=== PATIENT | female | born 1995 ===

== ENCOUNTER 2019-06-23 12:37 | Outpatient (REF) | payer BC, SELFPAY ==
--- NOTE | 2019-06-23 11:44 | PAPFT_PTH ---
PATIENT: Nita Jimenez [id number] AGE/SX: 23/ ROOM: RE06/23/[address]: Sendy Nelson : 1995 BED: DIS: 06/23/2019 SPEC #: [id number] RECD: 06/25/19 13:03 STATUS: DUSTIN REGabi #: [id number] DENISE: 06/23/19 11:[address]: Sendy Nelson DEPT: [facility] Cytology RECD BY: Jada Cristina Tissues: 1 - CX/ENDOCX FOR PAP SMEARS Procedures: PAP THIN PREP/[facility] Screening Comments: [id number] (CHLAMYDIA/GC)
[2019-06-26 12:51] LABS: Chlamydia Result Negative (Negative); GC Result Negative (Negative)
== END 2019-06-23 12:57 ==
LOC: NCHCN 12:37
PROVIDERS: PCP Nurse Practitioner Family; Visit Provider Nurse Practitioner Family
DX: Z00.00 Encounter for general adult medical examination without abnormal findings (principal); Z12.4 Encounter for screening for malignant neoplasm of cervix; Z01.419 Encounter for gynecological examination (general) (routine) without abnormal findings; Z11.3 Encounter for screening for infections with a predominantly sexual mode of transmission
CPT/HCPCS: 87491; 87591; 88142

== ENCOUNTER 2020-06-27 12:26 | Outpatient (REF) | payer BC, SELFPAY ==
[2020-06-28 19:39] LABS: COVID-19 RT-PCR UVMMC Result Negative (Negative)
== END 2020-06-27 12:46 ==
LOC: NCHCN 12:26
PROVIDERS: PCP Nurse Practitioner Family; Visit Provider Nurse Practitioner Family
DX: Z20.828 Contact with and (suspected) exposure to other viral communicable diseases (principal)
CPT/HCPCS: U0003

== ENCOUNTER 2020-07-05 15:01 | Outpatient (REF) | payer OTHER, SELFPAY ==
[2020-07-06 16:32] LABS: COVID-19 RT-PCR UVMMC Result Negative (Negative)
== END 2020-07-05 15:21 ==
LOC: NCHCN 15:01
PROVIDERS: PCP Nurse Practitioner Family; Visit Provider Nurse Practitioner Family
DX: Z20.822 Contact with and (suspected) exposure to COVID-19 (principal)
CPT/HCPCS: U0003

== ENCOUNTER 2020-11-18 19:34 | Outpatient (REF) | payer OTHER, SELFPAY ==
[2020-11-18 20:55] LABS: Abs Immature Grans 0.02 10^3/uL (0.0-0.06); Absolute Basophil Count 0.04 10^3/uL (0.0-0.2); Absolute Lymphocyte Count 1.61 10^3/uL (1.2-3.4); Absolute Monocyte Count 0.46 10^3/uL (0.1-0.8); Absolute Neutrophil Count 4.46 10^3/uL (1.2-6.7); Basophils % 0.6; Eosinophils % 2.9; HCT 40.2 % (36.0-46.0); HGB 12.9 g/dL (11.2-15.7); Immature Grans % 0.3; Lymphocytes % 23.7; MCH 28.3 pg (27.0-33.0); MCHC 32.1 % (32.0-36.0); MCV 88.2 fL (80-95); MPV 9.8 fL (8.0-11.0); Monocytes % 6.8; Neutrophils % 65.7; Nucleated RBC 0 %; Platelet Count 377 10^3/uL (130-400); RBC 4.56 10^6/uL (3.93-5.22); RDW 12.8 % (11.7-14.6); RDW-SD 41.7 fL; WBC 6.79 10^3/uL (4.4-10.8)
[2020-11-18 21:33] LABS: ALT 29 U/L (14-59); AST 20 U/L (15-37); Albumin 3.8 g/dL (3.4-5.0); Alkaline Phosphatase 69 U/L (46-116); Anion Gap 7.8 mmol/L (3-11); BUN 17 mg/dL (7-18); Bilirubin, Total 0.2 mg/dL (0.2-1.0); CO2 28.2 mmol/L (21.0-32.0); CREATININE 0.9 mg/dL (0.55-1.02); Calcium 9.1 mg/dL (8.5-10.1); Chloride 107 mmol/L (98-107); Glucose 86 mg/dL (74-106); Potassium 4.2 mmol/L (3.5-5.1); Sodium 143 mmol/L (136-145); TSH (W/Ref FT4) 1.05 uIU/mL (0.36-3.74); Total Protein 6.9 g/dL (6.4-8.2)
== END 2020-11-18 19:35 | disposition home or self-care (01) ==
LOC: NCHCN 19:34
PROVIDERS: PCP Nurse Practitioner Family; Visit Provider Family Medicine
DX: F41.8 Other specified anxiety disorders (principal)
CPT/HCPCS: 80053; 84443; 85025

== ENCOUNTER 2021-04-12 14:54 | Outpatient (REF) | payer OTHER, SELFPAY ==
[2021-04-12 22:01] LABS: Abs Immature Grans 0.04 10^3/uL (0.0-0.06); Absolute Basophil Count 0.05 10^3/uL (0.0-0.2); Absolute Lymphocyte Count 0.75 10^3/uL (1.2-3.4); Absolute Monocyte Count 0.75 10^3/uL (0.1-0.8); Absolute Neutrophil Count 8.03 10^3/uL (1.2-6.7); Basophils % 0.5; HCT 43.7 % (36.0-46.0); HGB 13.8 g/dL (11.2-15.7); Immature Grans % 0.4; Lymphocytes % 7.6; MCH 27.3 pg (27.0-33.0); MCHC 31.6 % (32.0-36.0); MCV 86.4 fL (80-95); MPV 10.2 fL (8.0-11.0); Monocytes % 7.6; Neutrophils % 81.9; Nucleated RBC 0 %; Platelet Count 358 10^3/uL (130-400); RBC 5.06 10^6/uL (3.93-5.22); RDW-SD 47.8 fL; WBC 9.82 10^3/uL (4.4-10.8)
[2021-04-12 22:09] LABS: Anion Gap 5.8 mmol/L (3-11); BUN 14 mg/dL (7-18); CO2 32.2 mmol/L (21.0-32.0); CREATININE 0.8 mg/dL (0.55-1.02); Calcium 9.2 mg/dL (8.5-10.1); Chloride 105 mmol/L (98-107); Glucose 84 mg/dL (74-106); Potassium 4.1 mmol/L (3.5-5.1); Sodium 143 mmol/L (136-145)
== END 2021-04-12 14:55 | disposition home or self-care (01) ==
LOC: LBN 14:54
PROVIDERS: PCP Nurse Practitioner Family; Visit Provider Physician Assistant Medical
DX: R55 Syncope and collapse (principal)
CPT/HCPCS: 80048; 85025

== ENCOUNTER 2022-08-23 12:32 | Outpatient (REF) | payer BC, SELFPAY ==
--- NOTE | 2022-08-23 11:30 | PAPFT_PTH ---
PATIENT: Nita Jimenez LOC: [facility]#:[id number] AGE/SX: 27/F ROOM: RE08/23/[address]: Sendy Nelson : 1995 BED: DIS: 08/23/2022 SPEC #: [id number] RECD: 08/23/22 17:59 STATUS: DUSTIN REGabi #: [id number] DENISE: 08/23/22 11:[address]: Sendy Nelson DEPT: [facility] Cytology RECD BY: Jada Cristina Tissues: 1 - CX/ENDOCX FOR PAP SMEARS Procedures: PAP THIN PREP/[facility] Screening Comments: [id number] (CHLAMYDIA/GC)
[2022-08-24 14:26] LABS: Chlamydia Result Negative (Negative); GC Result Negative (Negative)
== END 2022-08-23 12:33 | disposition home or self-care (01) ==
LOC: NCHCN 12:32
PROVIDERS: PCP Nurse Practitioner Family; Visit Provider Nurse Practitioner Family
DX: Z00.00 Encounter for general adult medical examination without abnormal findings (principal); Z12.4 Encounter for screening for malignant neoplasm of cervix; Z11.3 Encounter for screening for infections with a predominantly sexual mode of transmission
CPT/HCPCS: 87491; 87591; 88142

== ENCOUNTER 2024-02-20 15:56 | Outpatient (CLI) | payer BC, SELFPAY ==
--- OUTSIDE RECORDS SUMMARY | 2024-02-20 15:59 | XMS_ITS | Continuity of Care Document ---
Author [facility] Address [address] [place] [address] Care Team Providers Care Refrigeration Brazer/Solderer Name Role Phone FILIPE CAMPUZANO Primary Care Physician [phone] Encounter LTTL_[place] FIN NBR [id number] Date(s): 09/12/23 - 09/12/[address] [phone] Discharge Disposition: Home or Self Care Attending Physician: FILIPE CAMPUZANO Admitting Physician: FILIPE CAMPUZANO Referring Physician: FILIPE CAMPUZANO Allergies, Adverse Reactions, Alerts Substance Reaction Severity Status penicillin Moderate Active Bees/Stinging Insects Severe Active Immunizations Given and Recorded Vaccine Date Status Refusal Reason influenza virus vaccine, inactivated 03/26/22 Give n influenza virus vaccine, inactivated 1 05/06/20 Re corded tetanus/diphth/pertuss (Tdap) adult/adol 2 01/09/22 Recorded SARS-CoV-2 (COVID-19) mRNA-1273 vaccine 3 11/02/20 Recorded SARS-CoV-2 (COVID-19) mRNA-1273 vaccine 4 10/05/20 Recorded 1Result Comment: Unit: Unknown V Belt Skiver: Sanofi Pasteur 2Result Comment: V Belt Skiver: Sanofi Pasteur 3Result Comment: Unit: Unknown 4Result Comment: Unit: Unknown Medications busPIRone 10 mg oral tablet 270 EA, TAKE 1 TABLET BY MOUTH THREE TIMES DAILY NEEDED, 0 Refill(s) Start Date: 04/10/22 Status: Ordered norethindrone 0.35 mg oral tablet 0.35 mg = 1 tab, Oral, Daily, # 84 tab, 3 Refill(s) Start Date: 05/01/22 Status: Ordered Complete with DHA 1 Unknown, 0 Refill(s) Start Date: 04/10/22 Status: Ordered Slynd 4 mg oral tablet 4 mg = 1 tab, Oral, Daily, stop norethindrone. If this helps, may refill 90 at a time., # 28 tab, 11 Refill(s), Pharmacy: [id number], 177.8, cm, 04/10/22 10:36:00 EDT, Height/Length Dosing, 84.2, kg, 04/10/22 10:36:00 EDT, Weight Dosing Start Date: 06/07/22 Status: Ordered tranexamic acid 650 mg oral tablet 1,300 mg = 2 tab, Oral, TID, # 30 tab, 0 Refill(s), Pharmacy: [facility] #[id number], 177.8, cm, 04/10/22 10:36:00 EDT, Height/Length Dosing, 84.2, kg, 04/10/22 10:36:00 EDT, Weight Dosing Start Date: 08/10/22 Status: Ordered Problem List Condition Confirmation Course Effective Dates Status Health St atus Informant 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 Umbilical hernia Confirmed Active Procedures Procedure Date Related Diagnosis Body Site Status Structure of wisdom tooth Completed Results Radiology Reports * Exam Date Time Procedure Performing Provider Status 09/12/23 10:05 AM MG Mammo Diagnostic Bilateral Marly Lugo; Modified Notes: (MG Mammo Diagnostic Bilateral) Reason For Exam: LUMP IN LT BREAST PAIN IN RT, LUMPS IN L MG Mammo Diagnostic Bilateral EXAM DESCRIPTION: MG Mammo Diagnostic Bilateral 09/12/2023 INDICATION: LUMP IN LT BREAST PAIN IN RT, LUMPS IN L COMPARISON: Same date diagnostic left breast ultrasound BREAST DENSITY: There are scattered areas of fibroglandular density. FINDINGS: MLO and CC views were performed with digital breast tomosynthesis. Images were reviewed using computer aided detection. No asymmetry, architectural distortion or suspicious grouping of calcifications to suggest malignancy in either breast. Left breast ultrasound targeted to areas of palpable concern demonstrated no abnormality. Results were discussed with the patient at the time of examination. ASSESSMENT: No mammographic evidence of malignancy. Negative. BI-RADS category 1. RECOMMENDATION: 1: Screening mammography at age 40 JOB #: [id number] Final Signed by: Cody Pacheco MD Signed (Electronic Signature): 09/12/2023 10:08 am * Exam Date Time Procedure Performing Provider Status 09/12/23 9:36 AM US Breast Limited Left DomainUser, Gen erated; Auth (Verified) Notes: (US Breast Limited Left) Reason For Exam: LUMP IN LT BREAST PAIN IN RT US Breast Limited Left EXAM DESCRIPTION: US Breast Limited Left 09/12/2023 INDICATION: US Breast Limited Left TECHNIQUE: Limited grayscale ultrasound examination of the left breast was performed targeted to the areas of palpable concern. Static and cine clip images were obtained. COMPARISON: None FINDINGS: Scanning of the left breast in the 6 o'clock position 7-8 cm from the nipple and 3 o'clock position 4 cm from the nipple in the areas of palpable concern demonstrated normal glandular tissue with no suspicious solid or cystic lesion in either location. Results were discussed with the patient at the time of examination. ASSESSMENT: No evidence of malignancy. Negative. BI-RADS category 1. RECOMMENDATION: Screening mammography at age 40 JOB #: [id number] Final Signed by: Cody Pacheco MD Signed (Electronic Signature): 09/12/2023 10:06 am Social History Social History Type Response Tobacco Never tobacco user T obacco Use:. Sex Female Patient Care team information Care Team Personnel Name: Alok Toussaint MD, FACOG Position: Physician - Women's Health Member Role: TELEPHONE INTERVIEWER Physician Address: Address: [address] [place] [address] Name: Pretty Slade APRN Position: Physician Member Role: Nurse Practitioner Address: Address: [address] [facility] [address] [place] [id number] Name: FILIPE CAMPUZANO Position: No Access Member Role: Primary Care Physician Address: Address: [facility] [address] [place], [place] [address] Care Team Related Persons Name: KAYLIN CARMONA Address: Home [address], [place] [id number] [facility] Name: MONIQUE CARMONA Address: Home [address], [place] [id number] [place]
--- OUTSIDE RECORDS SUMMARY | 2024-02-20 15:59 | XMS_ITS | Encounter Summary ---
Author Organization [facility] Address [address] [place] [address] Care Team Providers Care Pension Adviser Name Role Phone Unavailable Primary Care Provider Unavailabl e Encounter Details Date Type Department Care Team (Late st Contact Info) Description 07/05/2020 Lab Requisition [facility] Pathology & Laboratory Medicine - [address] [address] Outr Resulting Lab, Provider Social History Tobacco Use Types Packs/Day Years Used Date Smoking Tobacco: Never Assessed Interpersonal Safety Answer Date Record ed Physically Hurt Never 05/17/2020 Verbally Threaten Not on file 05/17/2020 Sex and Gender Information Value Date Recorded Sex Assigned at Not on file Gender Identity Not on file Sexual Orientation Not on file documented as of this encounter Plan of Treatment Not on file documented as of this encounter Procedures Procedure Name Priority Date/Time Associated Diagnosis Comments ZZCOVID-19 TEST [facility] PCR Today 07/05/2020 10:30 EST COVID-19 TESTING Routine 07/05/2020 10:3 0 EST documented in this encounter Results * COVID-19 TEST [facility] PCR (07/05/2020 10:30 EST) Swab ENTIRE NASOPHARYNX / Unknown 07/05/2020 10:30 EST 07/05/2020 15:37 EST Provider Outr Resulting Lab MICROBIOLOGY - GENERAL ORDERABLES [facility] [address] [place] [address] * COVID-19 TESTING (07/05/2020 10:30 EST) COVID-19 rt-PCR Result Negative Negative 07/06/2020 16:22 EST [facility] Comment: Negative results do not preclude 2019-nCoV infection and should not be used as the sole basis for treatment or other patient management decisions. Negative results must be combined with clinical observations, patient history, and epidemiological information. This test was developed and its performance characteristics determined by [facility]. It has not been cleared or approved by the US Food and Drug Administration. FDA does not require this test to go through premarket FDA review. This test is used for clinical purposes. It should not be regarded as investigational or for research. This laboratory is certified under the Clinical Laboratory Improvement Amendments (CLIA) as qualified to perform high complexity clinical laboratory testing. This test is based on the CDC COVID-19 Emergency Use Authorization (EUA) assay, with minor modification as defined by the FDA Performed on the CallmyName 7 Flex. Performing Lab [facility] Lab 07/06/2020 16:22 EST [facility] Swab 07/05/2020 10:3 0 EST 07/05/2020 15:37 EST Provider Outr Resulting Lab MICROBIOLOGY - GENERAL ORDERABLES [facility] [address] [place] [address] documented in this encounter Visit Diagnoses Not on filedocumented in this encounter
--- OUTSIDE RECORDS SUMMARY | 2024-02-20 15:59 | XMS_ITS | Referral Summary ---
Author Organization [facility] Address [address] [place] [address] Care Team Providers Care Cake Former Name Role Phone Unavailable Primary Care Provider Unavailabl e Social History Tobacco Use Types Packs/Day Years Used Date Smoking Tobacco: Never Assessed Interpersonal Safety Answer Date Record ed Physically Hurt Never 05/17/2020 Verbally Threaten Not on file 05/17/2020 Sex and Gender Information Value Date Recorded Sex Assigned at Not on file Gender Identity Not on file Sexual Orientation Not on file Plan of Treatment Not on file
--- OUTSIDE RECORDS SUMMARY | 2024-02-20 15:59 | XMS_ITS | Continuity of Care Document ---
Author Organization [facility] Address [address] [place] [address] Care Team Providers Care Plant And Instrument Engineer Name Role Phone FILIPE CAMPUZANO Primary Care Physician [phone] Encounter LTTL_[place] FIN NBR [id number] Date(s): 11/20/22 - 11/20/[address] [address] Encounter Diagnosis Excessive and frequent menstruation with irregular cycle(Final) - Other specified abnormal uterine and vaginal bleeding(Final) - Discharge Disposition: Home or Self Care Attending Physician: Alok Toussaint MD, FACOG Admitting Physician: Alok Toussaint MD, FACOG Referring Physician: Alok Toussaint MD, FACOG Allergies, Adverse Reactions, Alerts Substance Reaction Severity Status penicillin Moderate Active Bees/Stinging Insects Severe Active Assessment and Plan Future Appointments Immunizations Given and Recorded Vaccine Date Status Refusal Reason influenza virus vaccine, inactivated 03/26/22 Give n influenza virus vaccine, inactivated 1 05/06/20 Re corded tetanus/diphth/pertuss (Tdap) adult/adol 2 01/09/22 Recorded SARS-CoV-2 (COVID-19) mRNA-1273 vaccine 3 11/02/20 Recorded SARS-CoV-2 (COVID-19) mRNA-1273 vaccine 4 10/05/20 Recorded 1Result Comment: Unit: Unknown Director Report: Sanofi Pasteur 2Result Comment: Director Report: Sanofi Pasteur 3Result Comment: Unit: Unknown 4Result [...] time., # 28 tab, 11 Refill(s), Pharmacy: [id number], 177.8, cm, 04/10/22 10:36:00 EDT, Height/Length Dosing, 84.2, kg, 04/10/22 10:36:00 EDT, Weight Dosing Start Date: 06/07/22 Status: Ordered tranexamic acid 650 mg oral tablet 1,300 mg = 2 tab, Oral, TID, # 30 tab, 0 Refill(s), 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 Umbilical hernia Confirmed Active Procedures Procedure Date Related Diagnosis Body Site Status Structure of wisdom tooth Completed Results Laboratory List Name Date CBC w/ Diff 11/20/22 Automated Diff 11/20/22 Most recent to oldest [Reference Range]: 1 WBC [4.8-10.8 K/mcL] 6.0 K/mcL (11/20/22 2:53 PM) RBC [4.20-5.40 Million/mcL] 4.66 Million /mcL (11/20/22 2:53 PM) Neutro Auto [42.2-75.2 %] 61.6 % (11/20/22 2:53 PM) Lymph Auto [20.5-51.1 %] 28.4 % (11/20/22 2:53 PM) [place] Auto [1.7-9.3 %] 7.3 % (11/20/22 2:53 PM) Basophil Auto [0.0-0.8 %] 0.7 % (11/20/22 2:53 PM) Baso Absolute [0.0-0.2 K/mcL] 0.0 K/mcL (11/20/22 2:53 PM) MCV [81.0-99.0 fL] 88.0 fL (11/20/22 2:53 PM) MCHC [32.0-36.0 g/dL] 32.0 g/dL (11/20/22 2:53 PM) Lymph Absolute [1.2-3.4 K/mcL] 1.7 K/mcL (11/20/22 2:53 PM) Hct [37.0-47.0 %] 41.0 % (11/20/22 2:53 PM) [place] Absolute [0.1-0.6 K/mcL] 0.4 K/mcL (11/20/22 2:53 PM) MCH [27.0-31.0 pg] 28.1 pg (11/20/22 2:53 PM) Neutro Absolute [1.4-6.5 K/mcL] 3.7 K/mc L (11/20/22 2:53 PM) Hgb [12.0-16.0 g/dL] 13.1 g/dL (11/20/22 2:53 PM) MPV [7.4-10.4 fL] 9.6 fL (11/20/22 2:53 PM) Platelets [130-400 K/mcL] 331 K/mcL (11/20/22 2:53 PM) Eos Absolute [0.0-0.2 K/mcL] 0.1 K/mcL (11/20/22 2:53 PM) RDW-CV [11.5-14.5 %] 12.6 % (11/20/22 2:53 PM) Imm Gran Absolute 0.02 *NA* (11/20/22 2:53 PM) Imm Gran Auto [0.0-0.5 %] 0.3 % (11/20/22 2:53 PM) Eos, Auto [0.00-3.00 %] 1.70 % (11/20/22 2:53 PM) Social History Social History Type Response Tobacco Never tobacco user T obacco Use:. Sex Female Patient Care team information Care Team Personnel Name: Alok Toussaint MD, FACOG Position: Physician - Women's Health Member Role: HOSPICE CARE TRANSITIONS COORDINATOR Physician Address: Address: [address] [place] [address] Name: Pretty Slade APRN Position: Physician Member Role: Nurse Practitioner Address: Address: [address] [facility] [address] [place], [place] [address] Name: FILIPE CAMPUZANO Position: No Access Member Role: Primary Care Physician Address: Address: [address] [address] [place] Care Team Related Persons Name: KAYLIN CARMONA Address: Home [address] [place], [place] [id number] [email or web address]] Name: MONIQUE CARMONA Address: Home [address], [place] [phone] [facility] [[email or web address]]
--- OUTSIDE RECORDS SUMMARY | 2024-02-20 15:59 | XMS_ITS | Encounter Summary ---
Author Organization [facility] Address [address] [place] [address] Care Team Providers Care Contour Sander Name Role Phone Unavailable Primary Care Provider Unavailabl e Encounter Details Date Type Department Care Team (Late st Contact Info) Description 06/27/2020 Lab Requisition [facility] Pathology & Laboratory Medicine - [address] [address] Outr Resulting Lab, Provider Social History Tobacco [...] Priority Date/Time Associated Diagnosis Comments ZZCOVID-19 TEST [facility] PCR Today 06/27/2020 11:00 EST COVID-19 TESTING Routine 06/27/2020 11:0 0 EST documented in this encounter Results * COVID-19 TEST [facility] PCR (06/27/2020 11:00 EST) Swab ENTIRE NASOPHARYNX / Unknown 06/27/2020 11:00 EST 06/27/2020 16:43 EST Provider Outr Resulting Lab MICROBIOLOGY - GENERAL ORDERABLES [facility] [address] [place] [address] * COVID-19 TESTING (06/27/2020 11:00 EST) COVID-19 rt-PCR Result Negative Negative 06/28/2020 19:30 EST [facility] Comment: Negative results do not preclude 2019-nCoV infection and should not be used as the sole basis for treatment or other patient management decisions. Negative results must be combined with clinical observations, patient history, and epidemiological information. This test was developed and its performance characteristics determined by [facility]. It has not been cleared or [...] defined by the FDA Performed on the Parastructure 7 Flex. Performing Lab [facility] 06/28/2020 19:30 EST [facility] Swab 06/27/2020 11:0 0 EST 06/27/2020 16:43 EST Provider Outr Resulting Lab MICROBIOLOGY - GENERAL ORDERABLES [facility] [address] [place] [address] documented in this encounter Visit Diagnoses Not on filedocumented in this encounter
--- OUTSIDE RECORDS SUMMARY | 2024-02-20 15:59 | XMS_ITS | Continuity of Care Document ---
Author Organization [facility] Address [address] [place] [address] Care Team Providers Care Relay Shop Supervisor Name Role Phone FILIPE NELSON Primary Care Physician Encounter LTTL_MD FIN NBR [id number] Date(s): 02/14/24 - 02/14/[address] [id number] Encounter Diagnosis Chest pain of unknown etiology(Discharge Diagnosis) - 02/14/24 Discharge Disposition: Home or Self Care Attending Physician: Dawood Maddox DO Admitting Physician: Dawood Maddox DO Allergies, Adverse Reactions, Alerts Substance Criticality Severity Reaction Reaction Severity Status amoxicillin Unable to assess criticality Unknown Active penicillin High criticality Moderate Ac tive Bees/Stinging Insects High criticality Severe Active Assessment and Plan Extracted from: Title:ED Provider Note Author:MELISSA Flores Date:02/14/24 Assessment/Plan 1.??Chest pain of unknown etiology??R07.9 ??Patient is safe to discharge home. ??Will continue supportive care as we discussed and will have close follow-up with her primary care.?Dr. Nelson is aware that she is here and will reach back out to her to schedule this follow-up.?? Strict return precautions understood. Ordered: Discharge Patient, 02/14/24 13:04:00 EDT, Home Independently ?? Orders: CV Electrocardiogram 12 Lead, 02/14/24 11:06:00 EDT, Routine, Reason: ED - empiric, Stop date and time 02/14/24 11:06:00 EDT, ORD_SET_REQ_DT_RANGE, Francisco's Internal Person Id Patient Education Chest Wall Pain Follow Up With When Contact Information FILIPE NELSON Within 1 to 2 weeks [address] [place] [address]- ?? Additional Instructions: Immunizations Given and Recorded Vaccine Date Status Refusal Reason influenza virus vaccine, inactivated 03/26/22 Give n influenza virus vaccine, inactivated 1 05/06/20 Re corded tetanus/diphth/pertuss (Tdap) adult/adol 2 01/09/22 Recorded SARS-CoV-2 (COVID-19) mRNA-1273 vaccine 3 11/02/20 Recorded SARS-CoV-2 (COVID-19) mRNA-1273 vaccine 4 10/05/20 Recorded 1Result Comment: Unit: Unknown Bobtailer: Sanofi Pasteur 2Result Comment: Bobtailer: Sanofi Pasteur 3Result Comment: Unit: Unknown 4Result Comment: Unit: Unknown Medications No Known Medications Mental Status 02/14/24 Eye Opening Response Safia Spontaneous ly Best Verbal Response Safia Oriented Best Motor Response [place] Obeys comman ds [place] Coma Score 15 Problem List Condition Confirmation Course Effective Dates Status Health St atus Informant 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 Umbilical hernia Confirmed Active Procedures Procedure Date Related Diagnosis Body Site Status Structure of wisdom tooth Completed Results Laboratory List Name Date CBC w/ Diff 02/14/24 Comprehensive Metabolic Panel (CMP) 02/13 Troponin-I High Sensitivity 02/14/24 Automated Diff 02/14/24 Most recent to oldest [Reference Range]: 1 WBC [4.8-10.8 K/mcL] 6.7 K/mcL (02/14/24 11:28 AM) RBC [4.20-5.40 Million/mcL] 5.20 Million /mcL (02/14/24 11:28 AM) Neutro Auto [42.2-75.2 %] 72.8 % (02/14/24 11:28 AM) Lymph Auto [20.5-51.1 %] 16.6 % *LOW* (02/14/24 11:28 AM) Doddridge Auto [1.7-9.3 %] 8.7 % (02/14/24 11:28 AM) Basophil Auto [0.0-0.8 %] 0.5 % (02/14/24 11:28 AM) BUN [7-25 mg/dL] 15 mg/dL (02/14/24 AM) Glucose Level [70-109 mg/dL] 91 mg/dL (02/14/24 AM) Potassium Level [3.5-5.1 mmol/L] 4.0 mmo l/L (02/14/24 AM) Baso Absolute [0.0-0.2 K/mcL] 0.0 K/mcL (02/14/24 AM) MCV [81.0-99.0 fL] 84.6 fL (02/14/24: AM) AST [13-39 IntlUnit/L] 19 IntlUnit/L (02/14/24 AM) ALT [7-52 IntlUnit/L] 18 IntlUnit/L (02/14/24: AM) MCHC [32.0-37.0 g/dL] 33.0 g/dL (02/14/24 AM) Osmolality [275-295 mOsm/kg] 274 mOsm/kg *LOW* (02/14/24 AM) Sodium Level [136-145 mmol/L] 137 mmol/L (02/14/24 AM) Lymph Absolute [1.2-3.4 K/mcL] 1.1 K/mcL *LOW* (02/14/24: AM) Hct [37.0-47.0 %] 44.0 % (02/14/24 AM) Calcium Level [8.6-10.3 mg/dL] 9.3 mg/dL (02/14/24: AM) Doddridge Absolute [0.1-0.6 K/mcL] 0.6 K/mcL (02/14/24 AM) Albumin Level [3.5-5.7 g/dL] 4.1 g/dL (02/14/24: AM) Protein Total [6.4-8.9 g/dL] 6.9 g/dL (02/14/24: AM) MCH [27.0-31.0 pg] 27.9 pg (02/14/24 11:28 AM) Neutro Absolute [1.4-6.5 K/mcL] 4.9 K/mc L (02/14/24 11: AM) Bilirubin Total [0.3-1.0 mg/dL] 0.3 mg/d L (02/14/24 11:28 AM) Hgb [12.0-16.0 g/dL] 14.5 g/dL (02/14/24 11: AM) Alk Phos [34-104 IntlUnit/L] 43 IntlUnit /L (02/14/24 11:28 AM) MPV [7.4-10.4 fL] 7.8 fL (02/14/24: AM) Platelets [130-400 K/mcL] 334 K/mcL (02/14/24 11: AM) CO2 [21-31 mmol/L] 28 mmol/L (02/14/24 11: AM) Eos Absolute [0.0-0.2 K/mcL] 0.1 K/mcL (02/14/24 11: AM) Chloride Level [98-107 mmol/L] 104 mmol/ L (02/14/24 11:28 AM) RDW-CV [11.5-14.5 %] 14.4 % (02/14/24 11: AM) A/G Ratio [1.0-2.5 g/dL] 1.5 g/dL (02/14/24 11:28 AM) BUN/Creat Ratio [8.0-20.0] 21.4 *HI* (02/14/24: AM) Globulin [2.3-3.5 g/dL] 2.8 g/dL (02/14/24 11: AM) Creatinine Level [0.60-1.20 mg/dL] 0.70 mg/dL (02/14/24 11: AM) Troponin-I HS [<=12 ng/L] <2 ng/L 1 (02/14/24 11: AM) Anion Gap [3.0-12.0] 5.0 (02/14/24 11: AM) Eos, Auto [0.00-3.00 %] 1.40 % (02/14/24 11:28 AM) eGFR CKD-EPI [>=60 mL/min/1.73 m2] 121 m L/min/1.73 m2 (02/14/24 11:28 AM) 1Interpretive Data: The Shai ACCESS high-sensitivity Troponin I (hsTNI) 99 percentile cutoffs forhealthy adults are 12 ng/L or less for females and 20 ng/L or less for males. SERIAL MEASUREMENT IS HIGHLY RECOMMENDED for the diagnosis or exclusion of Acute Coronary Syndromes(ACS). Please refer to the High-Sensitivity Troponin Algorithm 2022 for guidance. As with all markers of cardiac injury, elevations of hsTnI do not in and of themselves indicate thepresence of an ischemic mechanism. Many other disease states can be associated with elevations via mechanisms different from those that cause injury in patients with ACS. These include trauma (contusion, ablation, pacing); congestive heart failure; pulmonary embolism; kidney failure; and myocarditis. Clinical judgement is necessary to distinguish patients who have ischemic heart disease from those who do not. Radiology Reports * Exam Date Time Procedure Performing Provider Status 02/14/24 11:45 AM XR Chest 2 Views Julián Ellsion; Shahnaz (Verified) Notes: (XR Chest 2 Views) Reason For Exam: chest pain;Chest pain XR Chest 2 Views PROCEDURE INFORMATION: Exam: XR Chest Exam date and time: 02/14/2024 11:34 AM Age: 28 years old Clinical indication: Pain; Other: Chest; Additional info: Chest pain TECHNIQUE: Imaging protocol: Radiologic exam of the chest. Views: 2 views. COMPARISON: No relevant prior studies available. FINDINGS: Lungs: Lungs are well aerated without a focal area of consolidation. Pleural spaces: Unremarkable. No pleural effusion. No pneumothorax. Heart/Mediastinum: Unremarkable. No cardiomegaly. Bones/joints: Unremarkable. IMPRESSION: Lungs are well aerated without a focal area of consolidation. THIS DOCUMENT HAS BEEN ELECTRONICALLY SIGNED BY GERRY DUNN MD on 02/14/2024 12:05 PM Final Signed by: Gerry Dunn MD Signed (Electronic Signature): 02/14/2024 12:05 pm Vital Signs Most recent to oldest [Reference Range]: 1 2 3 Temperature Temporal Artery [36-38 Deg C] 36 Deg C (02/14/24 11:15 AM) Peripheral Pulse Rate [60-100 bpm] 96 bpm (02/14/24 12:55 PM) 87 bpm (02/14/24 12:44 PM) 84 bpm (02/14/24 12:29 PM) Heart Rate Monitored [60-100 bpm] 96 bpm (02/14/24 12:55 PM) 85 bpm (02/14/24 12:44 PM) 85 bpm (02/14/24 12:29 PM) Respiratory Rate [12-24 br/min] 14 br/min (02/14/24 12:55 PM) 15 br/min (02/14/24 12:44 PM) 13 br/min (02/14/24 12:29 PM) Blood Pressure [90-140/60-90 mmHg] 115/80mmHg (02/14/24 12:45 PM) 109/73mmHg (02/14/24 12:30 PM) 116/73mmHg (02/14/24 12:15 PM) Mean Arterial Pressure, Cuff [65-140 mmHg] 92 mmHg (02/14/24 12:45 PM) 85 mmHg (02/14/24 12:30 PM) 87 mmHg (02/14/24 12:15 PM) Mean Arterial Pressure Cuff 91 mmHg (02/14/24 12:45 PM) 85 mmHg (02/14/24 12:30 PM) 85 mmHg (02/14/24 12:15 PM) Weight 79.38 kg (02/14/24 11:15 AM) Weight Dosing 79.380 kg (02/14/24 11:15 AM) Height 177 cm (02/14/24 11:15 AM) Body Mass Index 25.34 kg/m2 (02/14/24 11:15 AM) Social History Social History Type Response Tobacco Never tobacco user T obacco Use:. Sex Female Sex Representation Female (finding) Hospital Discharge Instructions Patient Education 02/14/2024 12:03:14 Chest Wall Pain Chest Wall Pain Chest wall pain is pain in or around the bones and muscles of your chest. Sometimes, an injury causes this pain. Excessive coughing or overuse of arm and chest muscles may also cause chest wall pain.Sometimes, the cause may not be known. This pain may take several weeks or longer to get better. Follow these instructions at home: Managing pain, stiffness, and swelling ??? If directed, put ice on the painful area: ??? Put ice in a plastic bag. ??? Place a towel between your skin and the bag. ??? Leave the ice on for 20 minutes, 2???3 times per day. Activity ??? Rest as told by your health care provider. ??? Avoid activities that cause pain. These include any activities that use your chest muscles or your abdominal and side muscles to lift heavy items. Ask your health care provider what activities are safe for you. General instructions ??? Take [id number] and prescription medicines only as told by your health care provider. ??? Do not use any products that contain nicotine or tobacco, such as cigarettes, e-cigarettes, andchewing tobacco. These can delay healing after injury. If you need help quitting, ask your health care provider. ??? Keep all follow-up visits as told by your health care provider. This is important. Contact a health care provider if: ??? You have a fever. ??? Your chest pain becomes worse. ??? You have new symptoms. Get help right away if: ??? You have nausea or vomiting. ??? You feel sweaty or light-headed. ??? You have a cough with mucus from your lungs (sputum) or you cough up blood. ??? You develop shortness of breath. These symptoms may represent a serious problem that is an emergency. Do not wait to see if the symptoms will go away. Get medical help right away. Call your local emergency services (911 in the [place] Do not drive yourself to the hospital. Summary ??? Chest wall pain is pain in or around the bones and muscles of your chest. ??? Depending on the cause, it may be treated with ice, rest, medicines, and avoiding activities that cause pain. ??? Contact a health care provider if you have a fever, worsening chest pain, or new symptoms. ??? Get help right away if you feel light-headed or you develop shortness of breath. These symptomsmay be an emergency. This information is not intended to replace advice given to you by your health care provider. Make sure you discuss any questions you have with your health care provider. Document Revised: 08/22/2021 Document Reviewed: 08/25/2021 Elsevier Patient Education ?? 2022 [employer] Follow Up Care 02/14/2024 11:04:25 With:FILIPE NELSON Address: [address] [place] [address]- When:1 to 2 weeks Physician Emergency department Note * MELISSA Flores: PERFORM Event Display: ED Note Physician Authored Date: [id number] MATT CARMONA :1995 Age:28 years Sex:Female Visit Date:02/14/2024 Primary Care Physician: FILIPE NELSON Basic Information Time Seen: MELISSA Flores / 02/14/2024 11:06 Chief Complaint C/O RIGHT sided CP - relieved when pushing on area. Says this has happened before and it goes away but today it was worse. Went to school nurse and told HR was irregular and she was 'exhausting her breath' when breathing out. Feels fatigued. History Of Present Illness: This is a??otherwise healthy 28-year-old??female here for concerns of substernal chest pain.?? It began acutely this morning when she went from a standing to a sitting position??while hide this??school. ??She??felt a??significant pain for the first few seconds??then it resolved??and since then she has been experiencing a ache in the substernal chest.?? She did feel short of breath at the time that the pain was at its worst without has resolved. ??No recent illnesses or fevers.?? Denies cough orhemoptysis. ??No recent travel or procedure no leg pain or swelling. Patient??explains that she is experienced this pain??in the past??and did have a??cardiology?workup approximately 9??years ago, which was normal per patient. ??Stopped control 4 days ago??however was on a progesterone only pill. ??No recent estrogen use.?Denies chances of . Physical Exam Vitals & Measurements T:??36?C ??(Temporal Artery)?? HR:??96??(Peripheral)?? HR:??96??(Monitored)?? RR:??14?? BP:??115/80?? SpO2:??100%?? HT:??177??cm?? WT:??79.38??kg?? BMI:??25.34?? O2 Therapy:??Room air?? General: Patient is alert and engaging, appears well. Is in no acute distress. Speaking comfortablyin full sentences.?? Constitutional: No fevers, chills or diaphoresis.?? HEENT: Head normocephalic and atraumatic. Neck supple with FROM w/o lymphadenopathy or JVD. Tracheamidline. No c-spine tenderness. EOMs intact w/o pain. Pupils equal and reactive to light. TMs visualized bilaterally with normal color and landmarks present w/o erythema or effusion.?? Respiratory: ??No obvious work of breathing, regular rate. BS equal b/l, clear to auscultation.?? Cardiovascular: Heart regular rate and rhythm w/o murmurs, rubs or gallops. No peripheral edema present.?? GI: normoactive BS. Abdomen soft non tender, nondistended without guarding, rebound or rigidity. NoHSM Extremities: No obvious deformities. FROM.?? Integumentary: Skin warm and pink. No rashes or ecchymosis present.?? Neuro: CN III-XII grossly intact.?? Psychiatric: acting appropriate for age and circumstance. Normal mood without obvious ??affect.?? Medical Decision Making: This is a pleasant well-appearing 20-year-old female here for concern of substernal chest pain. ??She appears well in no acute distress. ??Vitals obtained and reviewed all within normal limits.?? Afebrile.?? Heart rate is 70 bpm??and oxygen 100% on room air. ??EKG obtained showing a sinus arrhythmia at a rate of 78 without any evidence of??ischemia??WPW or Brugada's.?? Unlikely PE as patient is neither hypoxic or tachycardic??as she has??no concerning risk factors??recent??surgical history history of malignancies or symptoms of a DVT.?Wells and PERC both 0.?? Labs unremarkable. ??Troponin less than 2.?? No acute findings on chest x-ray. ??Patient was given Toradol while in the emergency department with resolution of symptoms. Procedure No Qualifying Data Assessment/Plan 1.??Chest pain of unknown etiology??R07.9 ??Patient is safe to discharge home. ??Will continue supportive care as we discussed and will have close follow-up with her primary care.?Dr. Nelson is aware that she is here and will reach back out to her to schedule this follow- up.?? Strict return precautions understood. Ordered: Discharge Patient, 02/14/24 13:04:00 EDT, Home Independently ?? Orders: CV Electrocardiogram 12 Lead, 02/14/24 11:06:00 EDT, Routine, Reason: ED - empiric, Stop date and time 02/14/24 11:06:00 EDT, ORD_SET_REQ_DT_RANGE, Francisco's Internal Person Id Patient Education Chest Wall Pain Follow Up With When Contact Information FILIPE NELSON Within 1 to 2 weeks [address] [place] [address]- Additional Instructions: Problem List/Past Medical History Ongoing Post- depression state Umbilical hernia Historical Procedure/Surgical History ???Structure of wisdom tooth Medication Administration Given ketorolac, 15 mg, IV Allergies Bees/Stinging Insects penicillin amoxicillin Social History Alcohol Current, 1-2 times per month Electronic Cigarette/Vaping Electronic Cigarette Use: Never. 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 Home/Environment Lives with Children, Spouse. Living situation: Home/Independent. Sexual Sexually active: Yes. Substance Use Never Tobacco Never tobacco user Tobacco Use:. Family History Alive and well: Mother, Father, Sister and Son. Diagnostic Results XR Chest 2 Views 02/14/2024 12:05 EDT XR Chest 2 Views ?? 02/14/24 11:34:01 PROCEDURE INFORMATION: Exam: XR Chest Exam date and time: 02/14/2024 11:34 AM Age: 28 years old Clinical indication: Pain; Other: Chest; Additional info: Chest pain ?? TECHNIQUE: Imaging protocol: Radiologic exam of the chest. Views: 2 views. ?? COMPARISON: No relevant prior studies available. ?? FINDINGS: Lungs: Lungs are well aerated without a focal area of consolidation. Pleural spaces: Unremarkable. No pleural effusion. No pneumothorax. Heart/Mediastinum: Unremarkable. No cardiomegaly. Bones/joints: Unremarkable. ?? IMPRESSION: Lungs are well aerated without a focal area of consolidation. ? THIS DOCUMENT HAS BEEN ELECTRONICALLY SIGNED BY GERRY DUNN MD on 02/14/2024 12:05 PM ?? Signed By: Gerry Dunn MD Lab Results CBC and Differential?? LATEST RESULTS?? HISTORICAL RESULTS?? WBC?? 02/14/24 11:28?? 6.7?? 11/20/22?? 6.0?? RBC?? 02/14/24 11:28?? 5.20?? 11/20/22?? 4.66?? Hgb?? 02/14/24 11:28?? 14.5?? 11/20/22?? 13.1?? Hct?? 02/14/24 11:28?? 44.0?? 11/20/22?? 41.0?? MCV?? 02/14/24 11:28?? 84.6?? 11/20/22?? 88.0?? MCH?? 02/14/24 11:28?? 27.9?? 11/20/22?? 28.1?? MCHC?? 02/14/24 11:28?? 33.0?? 11/20/22?? 32.0?? RDW-CV?? 02/14/24 11:28?? 14.4?? 11/20/22?? 12.6?? Platelets?? 02/14/24 11:28?? 334?? 11/20/22?? 331?? MPV?? 02/14/24 11:28?? 7.8?? 11/20/22?? 9.6?? Neutro Auto?? 02/14/24 11:28?? 72.8?? 11/20/22?? 61.6?? Lymph Auto?? 02/14/24 11:28?? 16.6 ??Low?? 11/20/22?? 28.4?? Doddridge Auto?? 02/14/24 11:28?? 8.7?? 11/20/22?? 7.3?? Eos, Auto?? 02/14/24 11:28?? 1.40?? 11/20/22?? 1.70?? Basophil Auto?? 02/14/24 11:28?? 0.5?? 11/20/22?? 0.7?? Neutro Absolute?? 02/14/24 11:28?? 4.9?? 11/20/22?? 3.7?? Lymph Absolute?? 02/14/24 11:28?? 1.1 ??Low?? 11/20/22?? 1.7?? Doddridge Absolute?? 02/14/24 11:28?? 0.6?? 11/20/22?? 0.4?? Eos Absolute?? 02/14/24 11:28?? 0.1?? 11/20/22?? 0.1?? Baso Absolute?? 02/14/24 11:28?? 0.0?? 11/20/22?? 0.0? Routine Chemistry?? LATEST RESULTS?? Sodium Level?? 02/14/24 11:28?? 137?? Potassium Level?? 02/14/24 11:28?? 4.0?? Chloride Level?? 02/14/24 11:28?? 104?? CO2?? 02/14/24 11:28?? 28?? Alk Phos?? 02/14/24 11:28?? 43?? AST?? 02/14/24 11:28?? 19?? ALT?? 02/14/24 11:28?? 18?? BUN?? 02/14/24 11:28?? 15?? Glucose Level?? 02/14/24 11:28?? 91?? Creatinine Level?? 02/14/24 11:28?? 0.70?? BUN/Creat Ratio?? 02/14/24 11:28?? 21.4 ??High?? eGFR CKD-EPI?? 02/14/24 11:28?? 121?? Calcium Level?? 02/14/24 11:28?? 9.3?? Protein Total?? 02/14/24 11:28?? 6.9?? Albumin Level?? 02/14/24 11:28?? 4.1?? Globulin?? 02/14/24 11:28?? 2.8?? A/G Ratio?? 02/14/24 11:28?? 1.5?? Bilirubin Total?? 02/14/24 11:28?? 0.3?? Anion Gap?? 02/14/24 11:28?? 5.0?? Osmolality?? 02/14/24 11:28?? 274 ??Low? Cardiac Isoenzymes?? LATEST RESULTS?? Troponin-I HS?? 02/14/24 11:28?? <2? Electronically Signed on 02/14/2024 13:11 EDT MELISSA Flores Emergency department Discharge instructions * MELISSA Flores: PERFORM Event Display: ED Discharge Information Authored Date: [id number] MATT CARMONA :1995 Age:28 years Sex:Female Visit Date:02/14/2024 Primary Care Physician: FILIPE NELSON Discharge Instructions We would like to thank you for allowing us to assist you with your healthcare needs. The following includes patient education materials and information regarding your injury/illness. Diagnosis from Today's Visit Chest pain of unknown etiology Discharge Vitals Temperature??(Temporal Artery) 96.8 ??F (36 ??C) Heart Rate??(Peripheral) 96 Heart Rate??(Monitored) 96 Respiratory Rate?? 14 Blood Pressure?? 115/80?? SpO2?? 100% Height?? 69.69 in (177 cm) Weight?? 175.03 lb (79.38 kg) BMI?? 25.34 Allergies Bees/Stinging Insects penicillin amoxicillin What to Do Next Instructions from Your Care Team You were seen here for chest wall pain. ??Fortunately you did have resolution of pain with the Toradol and I would recommend continued ibuprofen??as needed. ??Workup was reassuring no acute findings on labs EKG or chest x-ray. ??I recommend close follow-up with your primary care within the week andreturn with any concerns of worsening pain respiratory symptoms cough??or fevers. You Need to Schedule the Following Appointments Follow Up with??FILIPE NELSON When:??Within 1 to 2 weeks Where: [address] [place] [address]- You were treated today on an emergency basis; it may be jarvis to contact your primary care provider to notify them of your visit today. You may have been referred to your regular doctor or a specialist, please follow up as instructed. If your condition worsens or you can't get in to see the doctor, contact the Emergency Department. Education Materials Chest Wall Pain Chest wall pain is pain in or around the bones and muscles of your chest. Sometimes, an injury causes this pain. Excessive coughing or overuse of arm and chest muscles may also cause chest wall pain.Sometimes, the cause may not be known. This pain may take several weeks or longer to get better. Follow these instructions at home: Managing pain, stiffness, and swelling ? If directed, put ice on the painful area: ? Put ice in a plastic bag. ? Place a towel between your skin and the bag. ? Leave the ice on for 20 minutes, 2???3 times per day. Activity ? Rest as told by your health care provider. ? Avoid activities that cause pain. These include any activities that use your chest muscles or your abdominal and side muscles to lift heavy items. Ask your health care provider what activities are safe for you. General instructions ? Take qrxr-vgu-aviestg and prescription medicines only as told by your health care provider. ? Do not use any products that contain nicotine or tobacco, such as cigarettes, e- cigarettes, and chewing tobacco. These can delay healing after injury. If you need help quitting, ask your health care provider. ? Keep all follow-up visits as told by your health care provider. This is important. Contact a health care provider if: ? You have a fever. ? Your chest pain becomes worse. ? You have new symptoms. Get help right away if: ? You have nausea or vomiting. ? You feel sweaty or light-headed. ? You have a cough with mucus from your lungs (sputum) or you cough up blood. ? You develop shortness of breath. These symptoms may represent a serious problem that is an emergency. Do not wait to see if the symptoms will go away. Get medical help right away. Call your local emergency services (911 in the [place] Do not drive yourself to the hospital. Summary ? Chest wall pain is pain in or around the bones and muscles of your chest. ? Depending on the cause, it may be treated with ice, rest, medicines, and avoiding activities that cause pain. ? Contact a health care provider if you have a fever, worsening chest pain, or new symptoms. ? Get help right away if you feel light-headed or you develop shortness of breath. These symptoms maybe an emergency. This information is not intended to replace advice given to you by your health care provider. Make sure you discuss any questions you have with your health care provider. Document Revised: 08/22/2021 Document Reviewed: 08/25/2021 [employer] Patient Education ?? 2022 [employer] Tests Performed Radiology XR Chest 2 Views 02/14/2024 12:05 EDT Medications and Immunizations Administered Given ketorolac, 15 mg, IV Lab Test Name Test Result Date/Time WBC 6.7 K/mcL 02/14/2024 11:28 EDT RBC 5.20 Million/mcL 02/14/2024 11:28 EDT Hgb 14.5 g/dL 02/14/2024 11:28 EDT Hct 44.0 % 02/14/2024 11:28 EDT MCV 84.6 fL 02/14/2024 11:28 EDT MCH 27.9 pg 02/14/2024 11:28 EDT MCHC 33.0 g/dL 02/14/2024 11:28 EDT RDW-CV 14.4 % 02/14/2024 11:28 EDT Platelets 334 K/mcL 02/14/2024 11:28 EDT MPV 7.8 fL 02/14/2024 11:28 EDT Neutro Auto 72.8 % 02/14/2024 11:28 EDT Lymph Auto 16.6 % 02/14/2024 11:28 EDT Doddridge Auto 8.7 % 02/14/2024 11:28 EDT Eos, Auto 1.40 % 02/14/2024 11:28 EDT Basophil Auto 0.5 % 02/14/2024 11:28 EDT Neutro Absolute 4.9 K/mcL 02/14/2024 11:28 EDT Lymph Absolute 1.1 K/mcL 02/14/2024 11:28 EDT Doddridge Absolute 0.6 K/mcL 02/14/2024 11:28 EDT Eos Absolute 0.1 K/mcL 02/14/2024 11:28 EDT Baso Absolute 0.0 K/mcL 02/14/2024 11:28 EDT Sodium Level 137 mmol/L 02/14/2024 11:28 EDT Potassium Level 4.0 mmol/L 02/14/2024 11:28 EDT Chloride Level 104 mmol/L 02/14/2024 11:28 EDT CO2 28 mmol/L 02/14/2024 11:28 EDT Alk Phos 43 IntlUnit/L 02/14/2024 11:28 EDT AST 19 IntlUnit/L 02/14/2024 11:28 EDT ALT 18 IntlUnit/L 02/14/2024 11:28 EDT BUN 15 mg/dL 02/14/2024 11:28 EDT Glucose Level 91 mg/dL 02/14/2024 11:28 EDT Creatinine Level 0.70 mg/dL 02/14/2024 11:28 EDT BUN/Creat Ratio 21.4 02/14/2024 11:28 EDT eGFR CKD-EPI 121 mL/min/1.73 m2 02/14/2024 11:28 EDT Calcium Level 9.3 mg/dL 02/14/2024 11:28 EDT Protein Total 6.9 g/dL 02/14/2024 11:28 EDT Albumin Level 4.1 g/dL 02/14/2024 11:28 EDT Globulin 2.8 g/dL 02/14/2024 11:28 EDT A/G Ratio 1.5 g/dL 02/14/2024 11:28 EDT Bilirubin Total 0.3 mg/dL 02/14/2024 11:28 EDT Anion Gap 5.0 02/14/2024 11:28 EDT Osmolality 274 mOsm/kg 02/14/2024 11:28 EDT Troponin-I HS <2 ng/L 02/14/2024 11:28 EDT Patient/Oyster Washer Signature Patient Name:MATT CARMONA I have received this information and my questions have been answered. Patient/Oyster Washer Name: Patient/Oyster Washer Signature: Relationship to Patient: Witness Name/Signature: Date: Electronically Signed on: 02/14/2024 13:04 EDTSigned by:AWILDA Patient Care team information Care Team Personnel Name: Alok Toussaint MD, FACOG Position: Physician - Women's Health Member Role: FAMILY SERVICE AIDE Physician Address: [address] [place] [address] Name: Pretty Slade APRN Position: Physician Member Role: Nurse Practitioner Address: [address] [address]- Name: FILIPE NELSON Position: No Access Member Role: Primary Care Physician Address: [address] [address] Care Team Related Persons Name: KAYLIN CARMONA Name: MONIQUE CARMONA Insurance Providers Guarantor name: MATT CARMONA Health Plan Information #: 1 Payer: [facility] Member Number: [id number] Policy Number: NA Health Plan Information #: 2 Payer: [facility] Member Number: [id number] Policy Number: NA Health Plan Information #: 3 Payer: [facility] Member Number: [id number] Policy Number: NA
--- OUTSIDE RECORDS SUMMARY | 2024-02-20 15:59 | XMS_ITS | Continuity of Care Document ---
Author Organization [facility] Ambulatory Clinics Address [address] [place] [address] Care Team Providers Care Television Maintenance Man Name Role Phone FILIPE CAMPUZANO Primary Care Physician Encounter [facility] NBR [id number] Date(s): 05/01/22 - 05/01/22 [facility] Ambulatory Clinics [address] [place], [place] [address] Encounter Diagnosis state(Discharge Diagnosis) - 05/01/22 Umbilical hernia(Discharge Diagnosis) - 05/01/22 Post- depression(Discharge Diagnosis) - 05/01/22 Family planning, BCP maintenance(Discharge Diagnosis) - 05/01/22 Discharge Disposition: Home or Self Care Attending Physician: Alok Toussaint MD, FACOG Allergies, Adverse Reactions, Alerts Substance Reaction Severity Status penicillin Moderate Active Bees/Stinging Insects Severe Active Assessment and Plan Future Appointments Functional Status 05/01/22 Recent Travel History No recent travel Other exposure to Infectious Disease Non e Immunizations Given and Recorded Vaccine Date Status Refusal Reason influenza virus vaccine, inactivated 03/26/22 Give n influenza virus vaccine, inactivated 1 05/06/20 Re corded tetanus/diphth/pertuss (Tdap) adult/adol 2 01/09/22 Recorded SARS-CoV-2 (COVID-19) mRNA-1273 vaccine 3 11/02/20 Recorded SARS-CoV-2 (COVID-19) mRNA-1273 vaccine 4 10/05/20 Recorded 1Result Comment: Unit: Unknown Grapple Operator: Sanofi Pasteur 2Result Comment: Grapple Operator: Sanofi Pasteur 3Result Comment: Unit: Unknown 4Result [...] 0 Refill(s) Start Date: 04/10/22 Status: Ordered Problem List Condition Confirmation Course Effective Dates Status Health St atus Informant 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 Umbilical hernia Confirmed Active Procedures Procedure Date Related Diagnosis Body Site Status Structure of wisdom tooth Completed Vital Signs Most recent to oldest [Reference Range]: 1 Blood Pressure [90-140/60-90 mmHg] 106/6 8mmHg (05/01/22 10:50 AM) Weight 83.9 kg (05/01/22 10:50 AM) Weight Measured (lbs) 184.968 lb (05/01/22 10:50 AM) [place] Body Weight Calculated 70.8 kg (05/01/22 10:50 AM) Height 180.34 cm (05/01/22 10:50 AM) Height/Length Measured (inches) 71 inch (05/01/22 10:50 AM) BSA Measured 2.05 m2 (05/01/22 10:50 AM) Body Mass Index 25.8 kg/m2 (05/01/22 10:50 AM) Social History Social History Type Response Tobacco Never tobacco user T obacco Use:. Sex Female Physician Outpatient Note * Alok Toussaint MD, FACOG: MODIFY, PERFORM Event Display: Office Clinic Note Physician Authored Date: [id number] LUBNAFABIANOBKMATT F :1995 Age:26 years Sex:Female Visit Date:05/01/2022 Primary Care Physician: FILIPE CAMPUZANO Chief Complaint 6 weeks . 03/21/2022. PP depression, sees a counselor weekly. Trying to avoid taking Sertraline. going well. Taking stool softner. Good home support. Finally getting intoa routine, that feels good. Started working out. History of Present Illness Hasn't had intercourse yet.?? Was nervous about starting BCP.?? Pumping since baby seems to be preferring that. Review of Systems Baby transferred to [facility] at 9 days for seizures and hyponatremia. Physical Exam Vitals & Measurements BP:??106/68?? HT:??180.34??cm?? WT:??83.9??kg?? BMI:??25.8?? BSA:??2.05?? HEENT- Masked. Chest clear to P&A.?? Heart without murmur. Breasts lactating with no mastitis or cracked nipples.?? Abdomen soft with supraumbilical hernia without anything poking through. Vulva well healed.?? Vagina pink.?? White secretions.?? Minimal cystocele and 2/5 PC contractions.?? Cervix parous, high. Uterus nontender.?? Normal size.?? Adnexa without masses.?? Extremities without edema.??[place] score 10 for depression. Assessment/Plan 1.?? state??Z39.2 Doing well.?? 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 4.??Family planning, BCP maintenance??Z30.41 Will start norethindrone and start intercourse two weeks later.?? Will need to switch to [facility] for next rx. . Problem List/Past Medical History Ongoing Post- depression state Umbilical hernia Historical Procedure/Surgical History ???Structure of wisdom tooth Medications busPIRone 10 mg oral tablet norethindrone 0.35 mg oral tablet, 0.35 mg= 1 tab, Oral, Daily, 3 refills Complete with DHA Allergies Bees/Stinging Insects penicillin Social History Electronic Cigarette/Vaping Electronic Cigarette Use: Never. 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 Home/Environment Lives with Children, Spouse. Living situation: Home/Independent. Sexual Sexually active: Yes. Tobacco Never tobacco user Tobacco Use:. Family History Alive and well: Mother, Father, Sister and Son. Immunizations Vaccine Date Status influenza virus vaccine, inactivated 03/26/2022 Given tetanus/diphth/pertuss (Tdap) adult/adol 01/09/2022 Recorded Comments : Grapple Operator: Sanofi Pasteur SARS-CoV-2 (COVID-19) mRNA-1273 vaccine 11/02/2020 Recorded Comments : Unit: Unknown SARS-CoV-2 (COVID-19) mRNA-1273 vaccine 10/05/2020 Recorded Comments : Unit: Unknown influenza virus vaccine, inactivated 05/06/2020 Recorded Comments : Unit: Unknown Grapple Operator: Sanofi Pasteur Electronically Signed on 05/01/22 11:26 AM Alok Toussaint MD, FACOG Electronically Signed on 05/01/22 11:27 AM Alok Toussaint MD, FACOG * Cat Powell: PERFORM Event Display: Office Clinic Note Physician Authored Date: Patient Care team information Care Team Personnel Name: Alok Toussaint MD, THAD Position: Physician - Women's Health Member Role: FAGOT HEATER Physician Address: Address: [address] [place] [id number] Name: Pretty Slade APRN Position: Physician Member Role: Nurse Practitioner Address: Address: [address] [place] [address] Name: FILIPE CAMPUZANO Position: No Access Member Role: Primary Care Physician Address: Address: [address] [address] Care Team Related Persons Name: KAYLIN CARMONA Address: Home [address] [place], [place] [id number] [facility]
--- OUTSIDE RECORDS SUMMARY | 2024-02-20 15:59 | XMS_ITS | Clinical Summary ---
Author Organization [facility] Address [address] [place] [address] Care Team Providers Care Professor Of Nursing Name Role Phone Unavailable Primary Care Provider [...] Orientation Not on file Plan of Treatment Health Maintenance Due Date Last Done Comments Hepatitis C Screen 1995 Hepatitis B Vaccine (1 of 3 - 19+ 3-dose series) 08/15 COVID-19 Vaccine (2022- season) 2023
--- OUTSIDE RECORDS SUMMARY | 2024-02-20 15:59 | XMS_ITS | Encounter Summary ---
Author Organization [facility] Address [address] [place] [address] Care Team Providers Care Shift Stacker Name Role Phone Unavailable Primary Care Provider Unavailabl e Encounter Details Date Type Department Care Team (Late st Contact Info) Description 06/25/2019 Lab Requisition [facility] Pathology & Laboratory Medicine - [address] [address] Unknown, Provider, Social History Tobacco Use Types Packs/Day Years Used Date Smoking Tobacco: Never Assessed Sex and Gender Information Value Date Recorded Sex Assigned at Not on file Gender Identity Not on file Sexual Orientation Not on file documented as of this encounter Plan of Treatment Not on file documented as of this encounter Procedures Procedure Name Priority Date/Time Associated Diagnosis Comments CHLAMYDIA/N. GONORRHOEAE AMPLIFIED NUCLEIC ACID, THINPREP Routine 06/23/2019 11:44 EST documented in this encounter Results * CHLAMYDIA/N. GONORRHOEAE AMPLIFIED RNA, THINPREP (06/23/2019 11:44 EST) Neisseria gonorrhoeae Result Negative Negative 06/26/2019 12:47 EST [facility] Chlamydia trachomatis Result Negative Negative 06/26/2019 12:47 EST [facility] Papanicolaou smear specimen (specimen) CERVIX UTERI STRUCTURE / Unknown 06/23/2019 11:44 EST 06/26/2019 7:24 EST Provider Unknown MICROBIOLOGY - GENER AL ORDERABLES [facility] [address] [place] [address] documented in this encounter Visit Diagnoses Not on filedocumented in this encounter
--- OUTSIDE RECORDS SUMMARY | 2024-02-20 15:59 | XMS_ITS | Continuity of Care Document ---
Author Organization [facility] Ambulatory Clinics Address [address] [place] [address] Care Team Providers Care Race Car Mechanic Name Role Phone FILIPE CAMPUZANO Primary Care Physician [phone] Encounter [facility] [facility] NBR [id number] Date(s): 04/10/22 - 04/10/22 [facility] Ambulatory Clinics [address] [place], [place] [address] Encounter Diagnosis state(Discharge Diagnosis) - 04/10/22 Discharge Disposition: Home or Self Care Attending Physician: Dr. Alok Toussaint MD, FACOG Assessment and Plan Future Appointments Functional Status 04/10/22 Recent Travel History No recent travel Other exposure to Infectious Disease Non e Immunizations Given and Recorded Vaccine Date Status Refusal Reason influenza virus vaccine, inactivated 03/26/22 Give n influenza virus vaccine, inactivated 1 05/06/20 Re corded tetanus/diphth/pertuss (Tdap) adult/adol 2 01/09/22 Recorded SARS-CoV-2 (COVID-19) mRNA-1273 vaccine 3 11/02/20 Recorded SARS-CoV-2 (COVID-19) mRNA-1273 vaccine 4 10/05/20 Recorded 1Result Comment: Unit: Unknown Operations Administrator: Sanofi Pasteur 2Result Comment: Operations Administrator: Sanofi Pasteur 3Result Comment: Unit: Unknown 4Result Comment: Unit: Unknown Medications busPIRone 10 mg oral tablet 270 EA, TAKE 1 TABLET BY MOUTH THREE TIMES DAILY NEEDED, 0 Refill(s) Start Date: 04/10/22 Status: Ordered Complete with DHA 1 Unknown, 0 Refill(s) Start Date: 04/10/22 Status: Ordered Problem List Condition Confirmation Course Effective Dates Status Health St at[facility] Informant 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 Umbilical hernia Confirmed Active Procedures Procedure Date Related Diagnosis Body Site Status Structure of wisdom tooth Completed Vital Signs Most recent to oldest [Reference Range]: 1 Blood Pressure [90-140/60-90 mmHg] 142/7 0mmHg *HI* (04/10/22 10:45 AM) Weight Dosing 84.2 kg (04/10/22 10:36 AM) Height/Length Dosing 177.80 cm (04/10/22 10:36 AM) Social History Social History Type Response Tobacco Never tobacco user T obacco Use:. Sex Female Patient Care team information Personnel Name: FILIPE CAMPUZANO Address: Address: [address] [address]- [place]
--- OUTSIDE RECORDS SUMMARY | 2024-02-20 15:59 | XMS_ITS | Encounter Summary ---
Author Organization [facility] Address [address] [place] [address] Care Team Providers Care Game Room Attendant Name Role Phone Unavailable Primary Care Provider Unavailabl e Encounter Details Date Type Department Care Team (Latest Contact Info) Description 08/23/2022 Lab Requisition [facility] Pathology & Laboratory Medicine - [facility] [address] [place] [address] Sendy Nelson FNP [address] [place] [address] [place] [phone] Encounter for general adult medical examination without abnormal findings; Encounter for gynecological examination (general) (routine) without abnormal findings; Encounter for screening for malignant neoplasm of cervix Social History Tobacco Use Types Packs/Day Years [...] Procedure Name Priority Date/Time Associated Diagnosis Comments PAP TEST Today 08/23/2022 11:30 EST Encounter for general adult medical examination without abnormal findings Encounter for gynecological examination (general) (routine) without abnormal findings Encounter for screening for malignant neoplasm of cervix CHLAMYDIA/N. GONORRHOEAE AMPLIFIED NUCLEIC ACID, THINPREP Today 08/23/2022 11:30 EST documented in this encounter Results * PAP TEST (08/23/2022 11:30 EST) Specimens A. Cervix and/or Endocervix , ThinPrep Imaging System with Manual Evaluation 09/06/2022 12:58 EDT [facility] Specimen Adequacy Satisfactory for Evaluation - transformation zone component present 09/06/2022 12:58 EDT [facility] General Categorization Negative for intraepithelial lesion or malignancy 09/06/2022 12:58 EDT [facility] Attestation . 09/06/2022 12:58 EDT [facility] at 1258 Clinical History See below 09/07/19 12:58 EDT [facility] Performing Lab [facility] 09/06/2022 12:58 EDT [facility] Scanned Images 09/06/2022 12:58 EDT [facility] Papanicolaou smear specimen (specimen) CERVIX UTERI STRUCTURE / Unknown 08/23/2022 11:30 EST 08/24/2022 12:38 EST Sendy GREER PATHOLOGY ORDERABLES Performing Organization Address City/[facility]/ZIP Co de Phone Number [facility] [address] [place] [address] * CHLAMYDIA/N. GONORRHOEAE AMPLIFIED RNA, THINPREP (08/23/2022 11:30 EST) Neisseria gonorrhoeae Result Negative Negative 08/24/2022 14:21 EST [facility] Chlamydia trachomatis Result Negative Negative 08/24/2022 14:21 EST [facility] Papanicolaou smear specimen (specimen) CERVIX UTERI STRUCTURE / Unknown 08/23/2022 11:30 EST 08/24/2022 10:08 EST Sendy GREER MICROBIOLOGY - GENER AL ORDERABLES [facility] [address] [place] [address] documented in this encounter Visit Diagnoses Diagnosis Encounter for general adult medical examination without abnormal findings Unspecified general medical examination Encounter for gynecological examination (general) (routine) without abnormal findings Encounter for screening for malignant neoplasm of cervix Screening for malignant neoplasm of the cervix documented in this encounter
--- OUTSIDE RECORDS SUMMARY | 2024-02-20 15:59 | XMS_ITS | Encounter Summary ---
Author Organization [facility] Address [address] [place] [address] Care Team Providers Care Horticulture Instructor Name Role Phone Unavailable Primary Care Provider Unavailabl e Encounter Details Date Type Department Care Team (Latest Contact Info) Description 06/26/2019 Lab Requisition [facility] Pathology & Laboratory Medicine - [facility] [address] [place] [address] Sendy Nelson FNP [address] [place] [address] [place] [phone] Encounter for general adult medical examination without abnormal findings; Encounter for screening for malignant neoplasm of cervix; Encounter for gynecological examination (general) (routine) without abnormal findings Social History Tobacco Use Types Packs/Day Years Used Date Smoking Tobacco: Never Assessed Sex and Gender Information Value Date Recorded Sex Assigned at Not on file Gender Identity Not on file Sexual Orientation Not on file documented as of this encounter Plan of Treatment Not on file documented as of this encounter Procedures Procedure Name Priority Date/Time Associated Diagnosis Comments PAP TEST Today 06/23/2019 11:44 EST Encounter for general adult medical examination without abnormal findings Encounter for screening for malignant neoplasm of cervix Encounter for gynecological examination (general) (routine) without abnormal findings documented in this encounter Results * PAP TEST (06/23/2019 11:44 EST) Specimens A. Cervix and/or Endocervix, , ThinPrep Imaging System with Manual Evaluation 06/30/2019 10:24 EST [facility] Specimen Adequacy Satisfactory for Evaluation - transformation zone component absent 06/30/2019 10:24 EST [facility] General Categorization Negative for intraepithelial lesion or malignancy 06/30/2019 10:24 EST [facility] Attestation . 06/30/2019 10:24 EST [facility] at 1024 Clinical History NONE 06/30/19 10:24 EST [facility] Scanned Images 06/30/2019 10:24 EST [facility] Papanicolaou smear specimen (specimen) CERVIX UTERI STRUCTURE / Unknown 06/23/2019 11:44 EST 06/26/2019 9:41 EST Sendy Nelson SHOTGUN SHELL ASSEMBLY MACHINE ADJUSTER PATHOLOGY ORDERABLES [facility] [address] [place] [address] documented in this encounter Visit Diagnoses Diagnosis Encounter for general adult medical examination without abnormal findings Unspecified general medical examination Encounter for screening for malignant neoplasm of cervix Screening for malignant neoplasm of the cervix Encounter for gynecological examination (general) (routine) without abnormal findings documented in this encounter
[2024-02-20 16:46] LABS: D-Dimer 184 ng/mlFEU (<500)
== END 2024-02-20 15:57 | disposition home or self-care (01) ==
LOC: LBO 15:57
PROVIDERS: PCP Nurse Practitioner Family; Visit Provider Nurse Practitioner Family
DX: R09.02 Hypoxemia (principal)
CPT/HCPCS: 36415; 85379

== ENCOUNTER 2024-02-27 02:26 | Outpatient (CLI) | payer BC, SELFPAY ==
--- NOTE | 2024-02-27 | DI.US_ITS ---
APPROVED REPORT EXAM: Comprehensive 2D, Doppler, and color-flow Echocardiogram Patient Location: Out-Patient Saddle And Harness Maker: Anais Wagner RDCS (AE) Indications: Desaturation of blood, Hypoxemia Other Information Study Quality: Adequate Conclusion Normal left ventricular wall thickness and chamber size. Ejection fraction is 58%. Wall motion is n ormal Normal right ventricular size and function Both atria are normal in size There is no structural or hemodynamically significant valvular disease Right ventricular systolic pressure could not be estimated Wall motion Left Ventricle The left ventricle is normal size. The left ventricular systolic function is normal. The left ventric ular ejection fraction is within the normal range. There is normal left ventricular wall thickness. T here is normal LV segmental wall motion. There is no ventricular septal defect visualized. LVEF is 58 %. Right Ventricle The right ventricle is normal size. The right ventricular systolic function is normal. Atria The left atrium size is normal. The right atrium size is normal. The interatrial septum is intact wit h no evidence for an atrial septal defect. Aortic Valve The aortic valve is normal in structure. Aortic valve is trileaflet. There is no aortic valvular sten osis. No aortic regurgitation is present. Mitral Valve The mitral valve is normal in structure. No evidence of mitral valve stenosis. Trace mitral regurgita tion. Tricuspid Valve The tricuspid valve is normal in structure. There is no tricuspid valve stenosis. Trace tricuspid reg urgitation. Unable to assess PA pressure. Pulmonic Valve The pulmonary valve is normal in structure. There is no pulmonic valvular stenosis. There is no pulmo julio valvular regurgitation. Great Vessels The aortic root is normal in size. The ascending aorta is normal in size. Aortic arch is normal in ca liber. IVC is normal in size and collapses >50% with inspiration. Pericardium There is no pericardial effusion. 2D Dimensions IVSD d PLAX 0.80 cm F: 0.6-1.0 Ao Root d 2.60 cm F: 2.7 - 3.3 LVPW d PLAX 0.80 cm F: 0.6 - 1.0 Ao Asc Diam d 2.65 cm F: 2.3 - 3.1 LVID d PLAX 4.74 cm F: 3.8 - 5.2 LVDs 3.25 cm F: 2.2 - 3.5 LV EF Teichholz 59.2 % FS 31.38 % LV EDV (Teich) 104.2 mL LV ESV (Teich) 42.5 mL M-Mode TAPSE 2.21 cm (M/F) >1.7 Auto EF LV EDV A4C 92.4 mL LV EDV A2C 107.9 mL LV EDV BP 100.2 mL LV ESV A4C 38.6 mL LV ESV A2C 45.8 mL LV ESV BP 43.2 mL LVEF(%) A4C 58.2 % LVEF(%) A2C 57.5 % LVEF(%) BP 56.9 % LV SV A4C 53.8 ml LV SV A2C 62.0 ml LV SV BP 57.0 ml LV CO A4C 4.3 L/min LV CO A2C 4.9 L/min LV CO BP 4.6 L/min HR A4C 79.96 BPM HR A2C 78.95 BPM LV EDV Index (BP) LA Volume LA Length A4C 5.0 cm LA Length A2C 4.4 cm LA Area A4C s 13.98 cm2 LA Area A2C s 13.49 cm2 LA Vol A4C A-L 33.24 mL LA Vol A2C A-L 34.83 mL LA Vol Biplane A-L 36.1 mL LA Vol/BSA A4C A-L LA Vol/BSA A2C A-L LA Vol/BSA BP A-L 18.3 mL/m2 LA Vol A4C MOD 31.0 mL LA Vol A2C MOD 34.8 mL LA Vol BP MOD 34.6 mL RA Volume RA Area A4C 11.3 cm2 RA ESV A4C (A-L) 28.3mL RA Vol/BSA A4C A-L RA Length A4C 3.8 cm RA ESV A4C (MOD) 27.3mL LV Diastology MV E' medial 0.149 (>0.07 m/s) MV E Vmax 1.00 (0.4-1.3 m/s) MV E/E' MED 6.73 (<14) MV A Vmax 0.50 (0.4-1.3 m/s) MV E' lateral 0.190 (>0.1 m/s) E/A Ratio 2.0 MV E/E' LAT 5.27 (<14) MV E' Average 0.170 m/s MV E/E'(average) 5.91 Aortic Valve AoV Vmax 1.34 m/s LVOT Vmax 1.17 m/s AoV Peak Grad 7.2 mmHg LVOT Peak Grad 5.5 mmHg AoV Area (Vmax) 2.59 cm2 LVOT VTI 0.229 m AoV VTI 0.282 m LVOT Mean Grad 3.0 mmHg AoV Mean Tommy. 0.96 m/s LVOT SV 67.88 mL AoV Mean Grad 4.2 mmHg LVOT Diam s 1.90 cm AoV Area (VTI) 2.41 cm2 AV Regurg Peak Gr. 7.15 mmHg Velocity Ratio 0.87 Mitral Valve MV DT 233 (160-240 msec) MV Vmax TIPS 0.83 m/s MV Mean Grad 1.2 (<2mmHg) MV VTI 0.267 m Pulmonary Valve PV Vmax 1.05 (0.5-1.5 m/s) RVOT Vmax 0.77 m/s PV Peak Grad 4.4 mmHg RVOT Peak Gr. 2.4 mmHg PV Mean Tommy 0.78 m/s RVOT VTI 0.182 m PV Mean Grad 2.8 mmHg RVOT Mean Gr. 1.4 mmHg Tricuspid Valve RA Pressure 3.00 mmHg TV S' 0.11 m/s
== END 2024-02-27 02:46 ==
PROVIDERS: PCP Nurse Practitioner Family; Visit Provider Nurse Practitioner Family
DX: R09.02 Hypoxemia (principal)
CPT/HCPCS: 93306

== ENCOUNTER 2024-02-27 08:25 | Outpatient (CLI) | payer BC, SELFPAY ==
--- NOTE | 2024-03-10 08:40 | W.CARDEVENT ---
Date of service: 03/10/24 Time of Service: 08:40 Cardiac Event Recorder Referring Provider:: Shruthi Chopra Indications:: Chest pain Cardiac Event Note: This is a cardiac event monitor. Patient was monitored for 5 days and 7 hours Rhythm throughout was sinus with an average heart rate of 88. Minimum was 51, maximum 188. A total of 9 premature ventricular contractions were seen There were no supraventricular dysrhythmias. There was no atrial fibrillation, no high-grade AV block, no pauses greater than 3 seconds Patient's symptoms correlated to sinus rhythm
== END 2024-02-27 08:26 | disposition home or self-care (01) ==
LOC: CARDOPNVT 08:25
PROVIDERS: PCP Nurse Practitioner Family; Visit Provider Family Medicine
DX: R07.9 Chest pain, unspecified (principal); I49.3 Ventricular premature depolarization
CPT/HCPCS: 93246

== ENCOUNTER 2024-03-03 18:07 | Outpatient (REF) | payer BC, SELFPAY ==
[2024-03-03 17:12] LABS: TSH (W/Ref FT4) 2.27 uIU/mL (0.36-3.74)
--- OUTSIDE RECORDS SUMMARY | 2024-03-03 18:12 | XMS_ITS | Encounter Summary ---
Author Organization [facility] Address [address] [place] [address] Care Team Providers Care Ultrasound Tech Name Role Phone Unavailable Primary Care Provider Unavailabl e Encounter Details Date Type Department Care Team (Latest Contact Info) Description 06/26/2019 Lab Requisition [facility] Pathology & Laboratory Medicine - [facility] [address] [place] [address] Sendy Nelson FNP [address] [place] [address] [place] [phone] Encounter for general adult medical examination without [...] System with Manual Evaluation 06/30/2019 10:24 EST [facility] Specimen Adequacy Satisfactory for Evaluation - transformation zone component absent 06/30/2019 10:24 EST [facility] General Categorization Negative for intraepithelial lesion or malignancy 06/30/2019 10:24 EST [facility] Attestation . 06/30/2019 10:24 EST [facility] at 1024 Clinical History NONE 06/30/19 10:24 EST [facility] Scanned Images 06/30/2019 10:24 EST [facility] Papanicolaou smear specimen (specimen) CERVIX UTERI STRUCTURE / Unknown 06/23/2019 11:44 EST 06/26/2019 9:41 EST Sendy Nelson DYE WORKER PATHOLOGY ORDERABLES [facility] [address] [place] [address] documented in this encounter Visit Diagnoses Diagnosis Encounter for general adult medical examination without abnormal findings Unspecified general medical examination Encounter for screening for malignant neoplasm of cervix Screening for malignant neoplasm of the cervix Encounter for gynecological examination (general) (routine) without abnormal findings documented in this encounter
--- OUTSIDE RECORDS SUMMARY | 2024-03-03 18:12 | XMS_ITS | Encounter Summary ---
Author Organization [facility] Address [address] [place] [id number] Care Team Providers Care Technician Chemical Cleaning Name Role Phone Unavailable Primary Care Provider Unavailabl e Encounter Details Date Type Department Care Team (Late st Contact Info) Description 06/25/2019 Lab Requisition [facility] Pathology & Laboratory Medicine - [address] [address] Unknown, Provider, Social History Tobacco Use Types [...] gonorrhoeae Result Negative Negative 06/26/2019 12:47 EST [facility] Chlamydia trachomatis Result Negative Negative 06/26/2019 12:47 EST [facility] Papanicolaou smear specimen (specimen) CERVIX UTERI STRUCTURE / Unknown 06/23/2019 11:44 EST 06/26/2019 7:24 EST Provider Unknown MICROBIOLOGY - GENER AL ORDERABLES [facility] [address] [place] [address] documented in this encounter Visit Diagnoses Not on filedocumented in this encounter
--- OUTSIDE RECORDS SUMMARY | 2024-03-03 18:12 | XMS_ITS | Encounter Summary ---
Author Organization [facility] Address [address] [place] [address] Care Team Providers Care Proofsheet Corrector Name Role Phone Unavailable Primary Care Provider Unavailabl e Encounter Details Date Type Department Care Team (Latest Contact Info) Description 08/23/2022 Lab Requisition [facility] Pathology & Laboratory Medicine - [facility] [address] [place] [address] Sendy Nelson FNP [address] [place] [address] [place] [phone] Encounter for general adult medical examination [...] System with Manual Evaluation 09/06/2022 12:58 EDT [facility] Specimen Adequacy Satisfactory for Evaluation - transformation zone component present 09/06/2022 12:58 EDT [facility] General Categorization Negative for intraepithelial lesion or malignancy 09/06/2022 12:58 EDT [facility] Attestation . 09/06/2022 12:58 EDT [facility] at 1258 Clinical History See below 09/07/19 12:58 EDT [facility] Performing Lab [facility] 09/06/2022 12:58 EDT [facility] Scanned Images 09/06/2022 12:58 EDT [facility] Papanicolaou smear specimen (specimen) CERVIX UTERI STRUCTURE / Unknown 08/23/2022 11:30 EST 08/24/2022 12:38 EST Sendy GREER PATHOLOGY ORDERABLES Performing Organization Address City/[facility]/ZIP Co de Phone Number [facility] [address] [place] [address] * CHLAMYDIA/N. GONORRHOEAE AMPLIFIED RNA, THINPREP (08/23/2022 11:30 EST) Neisseria gonorrhoeae Result Negative Negative 08/24/2022 14:21 EST [facility] Chlamydia trachomatis Result Negative Negative 08/24/2022 14:21 EST [facility] Papanicolaou smear specimen (specimen) CERVIX UTERI STRUCTURE / Unknown 08/23/2022 11:30 EST 08/24/2022 10:08 EST Sendy GREER MICROBIOLOGY - GENER AL ORDERABLES [facility] [address] [place] [address] documented in this encounter Visit Diagnoses Diagnosis Encounter for general adult medical examination without abnormal findings Unspecified general medical examination Encounter for gynecological examination (general) (routine) without abnormal findings Encounter for screening for malignant neoplasm of cervix Screening for malignant neoplasm of the cervix documented in this encounter
--- OUTSIDE RECORDS SUMMARY | 2024-03-03 18:12 | XMS_ITS | Encounter Summary ---
Author Organization [facility] Address [address] [place] [address] Care Team Providers Care Salad Maker Name Role Phone Unavailable Primary Care Provider Unavailabl e Encounter Details Date Type Department Care Team (Late st Contact Info) Description 06/27/2020 Lab Requisition [facility] Pathology & Laboratory Medicine - [address] [address] Outr Resulting Lab, Provider Social History Tobacco [...] Priority Date/Time Associated Diagnosis Comments ZZCOVID-19 TEST [facility] PCR Today 06/27/2020 11:00 EST COVID-19 TESTING Routine 06/27/2020 11:0 0 EST documented in this encounter Results * COVID-19 TEST [facility] PCR (06/27/2020 11:00 EST) Swab ENTIRE NASOPHARYNX / Unknown 06/27/2020 11:00 EST 06/27/2020 16:43 EST Provider Outr Resulting Lab MICROBIOLOGY - GENERAL ORDERABLES [facility] [address] [place] [address] * COVID-19 TESTING (06/27/2020 11:00 EST) COVID-19 rt-PCR Result Negative Negative 06/28/2020 19:[address] [facility] Comment: Negative results do not preclude 2019-nCoV infection and should not be used as the sole basis for treatment or other patient management decisions. Negative results must be combined with clinical observations, patient history, and epidemiological information. This test was developed and its performance characteristics determined by [facility]. It has not been cleared or approved [...] defined by the FDA Performed on the [employer] 7 Flex. [address] [facility] 06/28/2020 19:[address] [facility] Swab 06/27/2020 11:0 0 EST 06/27/2020 16:43 EST Provider Outr Resulting Lab MICROBIOLOGY - GENERAL ORDERABLES [facility] [address] [place] [address] documented in this encounter Visit Diagnoses Not on filedocumented in this encounter
--- OUTSIDE RECORDS SUMMARY | 2024-03-03 18:12 | XMS_ITS | Referral Summary ---
Author Organization [facility] Address [address] [place] [address] Care Team Providers Care Balance Wheel Hand Filer Name Role Phone Unavailable Primary Care Provider [...]
--- OUTSIDE RECORDS SUMMARY | 2024-03-03 18:12 | XMS_ITS | Clinical Summary ---
Author Organization [facility] Address [address] [place] [address] Care Team Providers Care Trousseau Consultant Name Role Phone Unavailable Primary Care Provider [...]
--- OUTSIDE RECORDS SUMMARY | 2024-03-03 18:12 | XMS_ITS | Encounter Summary ---
Author Organization [facility] Address [address] [place] [address] Care Team Providers Care Helpdesk Specialist Name Role Phone Unavailable Primary Care Provider Unavailabl e Encounter Details Date Type Department Care Team (Late st Contact Info) Description 07/05/2020 Lab Requisition [facility] Pathology & Laboratory Medicine - [address] [address] Outr Resulting Lab, Provider Social History Tobacco [...] Priority Date/Time Associated Diagnosis Comments ZZCOVID-19 TEST [facility] PCR Today 07/05/2020 10:30 EST COVID-19 TESTING Routine 07/05/2020 10:3 0 EST documented in this encounter Results * COVID-19 TEST [facility] PCR (07/05/2020 10:30 EST) Swab ENTIRE NASOPHARYNX / Unknown 07/05/2020 10:30 EST 07/05/2020 15:37 EST Provider Outr Resulting Lab MICROBIOLOGY - GENERAL ORDERABLES [facility] [address] [place] [address] * COVID-19 TESTING (07/05/2020 10:30 EST) COVID-19 rt-PCR Result Negative Negative 07/06/2020 16:22 EST [facility] Comment: Negative results do not preclude 2019-nCoV infection and should not be used as the sole basis for treatment or other patient management decisions. Negative results must be combined with clinical observations, patient history, and epidemiological information. This test was developed and its performance characteristics determined by [facility]. It has not been cleared or [...] defined by the FDA Performed on the [employer] 7 Flex. Performing Lab [facility] 07/06/2020 16:22 EST [facility] Swab 07/05/2020 10:3 0 EST 07/05/2020 15:37 EST Provider Outr Resulting Lab MICROBIOLOGY - GENERAL ORDERABLES [facility] [address] [place] [address] documented in this encounter Visit Diagnoses Not on filedocumented in this encounter
== END 2024-03-03 18:08 | disposition home or self-care (01) ==
LOC: NCHCN 18:07
PROVIDERS: PCP Nurse Practitioner Family; Visit Provider Nurse Practitioner Family
DX: R00.0 Tachycardia, unspecified (principal)
CPT/HCPCS: 84443

== ENCOUNTER 2024-03-09 04:50 | Outpatient (CLI) | payer BC, SELFPAY ==
[2024-03-09] MEDS: Methacholine 100 MG VIAL IH (17:07)
[2024-03-09] MEDS: Inhaler, Assist Device 1 EACH MC (17:08)
[2024-03-09] MEDS: Albuterol HFA 18 GM 200 PUFF INH IH (17:08)
--- NOTE | 2024-03-10 12:18 | W.PFT ---
Date of service: 03/09/24 Time of Service: 15:05 Pulmonary Function Test Result Requesting Provider Sendy Nelson Indications: Dyspnea on exertion, never smoker, seasonal allergies, possible exercise-induced asthma, hypoxia x 3 weeks. Interpretation Spirometry: Spirometry pre and postbronchodilator and methacholine challenge test show: 1. Normal spirometry at baseline 2. Positive methacholine challenge test, with a 33% decrease in FEV1 at 2 mg/mL of methacholine. 3. Airway obstruction resolved after administration of post methacholine bronchodilator. Impression This test is consistent with reactive airways disease, and diagnostic of asthma in the appropriate clinical setting. Clinical correlation is recommended. Asthma staging, and subsequent treatment is dependent on correlation with symptom frequency and severity.
== END 2024-03-09 04:51 | disposition home or self-care (01) ==
LOC: RT 04:50
PROVIDERS: PCP Nurse Practitioner Family; Visit Provider Nurse Practitioner Family
DX: J30.2 Other seasonal allergic rhinitis; J45.909 Unspecified asthma, uncomplicated
CPT/HCPCS: 00123; 94060; 94070; 94726; 94729; 94010; J7674

== ENCOUNTER 2024-03-10 08:46 | Outpatient (CLI) | payer BC, SELFPAY | END 2024-03-10 08:47 | disposition home or self-care (01) | LOC: CARDOPNVT 08:46 | PROVIDERS: PCP Nurse Practitioner Family; Visit Provider Internal Medicine Cardiovascular Disease | DX: R07.9 Chest pain, unspecified (principal); I49.3 Ventricular premature depolarization ==